=== PATIENT | female | born 1960 | race Caucasian/White ===

== ENCOUNTER 2023-03-16 18:22 | Emergency (ER) | payer OTHER, SELFPAY ==
[2023-03-16 18:40] VITALS: BP 167/80; PULSE 71; RESP 18; TEMP 35.9; O2SAT 99; BMI 24.7
--- NOTE | 2023-03-16 18:51 | ED_ITS ---
HPI - Female Genitourinary General Chief complaint: Urogenital Problems, Female Stated complaint: poss uti Time Seen by Provider: 03/16/23 18:23 History of Present Illness HPI Narrative: This 63-year-old female comes in reporting dysuria symptoms that began earlier today. She has increased frequency and discomfort when voiding urine. 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 She did take some azo prior to arrival and also states that she had some nitrofurantoin left over and she took a dose of this today. She states that the nitro friend joint does not seem to help her very much anymore. Related Data Allergies Allergy/AdvReac Type Severity Reaction Status Date / Time Sulfa (Sulfonamide Allergy Severe rash Verified 03/16/23 18:44 Antibiotics) Review of Systems Status of ROS: Reports: 10 or more systems reviewed and unremarkable except as noted in History and below Narrative: Constitutional: No fevers, no weight gain or loss. Eyes: No discharge. No vision changes. HENT: No congestion, no sore throat, no ear pain. Cardiovascular: No chest pain, no palpitations. Respiratory: No shortness of breath, no wheezes, no cough. Gastrointestinal: No abdominal pain, no vomiting, no diarrhea. Genitourinary: Dysuria symptoms as described above. Musculoskeletal: Normal range of motion. Skin: No rashes, no pruritis. Neurological: No dizziness, weakness, sensory change, speech change. Endo/Heme/Allergies: No bruising or bleeding. No polydipsia. Pysch: no suicidality, no anxiety, no insomnia. All other systems reviewed and are negative. PFSH PFSH Social History Smoking Status: Never smoker Do you use any of these nicotine containing products: None Second hand tobacco smoke exposure: No How often do you have a drink containing alcohol: never How often do you have six or more drinks on one occasion: Never AUDIT-C Alcohol total score: 0 Non-prescribed substance use: denies use Exam Narrative: Exam Narrative: Constitutional: Well-developed, well-nourished, no acute distress. HEENT: Normocephalic, atraumatic. Neck: Normal range of motion. Nontender. Supple. Heart: Intact distal pulses. Lungs: No chest discomfort. No wheezes, rhonchi, or rales. Abdomen: Nontender. Back: Normal range of motion. Extremities: Normal range of motion. No injury. Skin: Intact. No rash. Warm. No erythema or pallor. Neurologic: No altered sensation. No weakness. Alert and oriented. Psychiatric: No suicidality. No anxiety or depression. No insomnia. Nursing notes and vitals signs are reviewed. Const: Vital Signs, click to edit/add: Vital Signs - 24 hr 03/16/23 18:40 Temperature 96.6 F L Pulse Rate [Right Pulse Oximeter] 71 Respiratory Rate 18 Blood Pressure [Ri ght Upper Arm] 167/80 H Pulse Oximetry 99 Oxygen Delivery Me thod Room Air Course Vital Signs Vital signs: Initial Vital Signs Temperature 96.6 F L 03/16/23 18:40 Temperature Source Temporal Artery Scan 03/16/23 18:40 Pulse Rate 71 03/16/23 18:40 Pulse Rhythm Regular 03/16/23 18:40 Pulse Strength 3+ Normal 03/16/23 18:40 Respiratory Rate 18 03/16/23 18:40 Blood Pressure 167/80 H 03/16/23 18:40 Blood Pressure Mean 109 H 03/16/23 18:40 Blood Pressure Position Sitting 03/16/23 18:40 Pulse Oximetry 99 03/16/23 18:40 Oxygen Delivery Method Room Air 03/16/23 18:40 Vital Signs Temperature 96.6 F L 03/16/23 18:40 Pulse Rate 71 03/16/23 18:40 Respiratory Rate 18 03/16/23 18:40 Blood Pressure 167/80 H 03/16/23 18:40 Pulse Oximetry 99 03/16/23 18:40 Oxygen Delivery Method Room Air 03/16/23 18:40 Temperature 96.6 F L 03/16/23 18:40 Pulse Rate 71 03/16/23 18:40 Respiratory Rate 18 03/16/23 18:40 Blood Pressure 167/80 H 03/16/23 18:40 Pulse Oximetry 99 03/16/23 18:40 Oxygen Delivery Method Room Air 03/16/23 18:40 MDM - Female Genitourinary MDM Narrative Medical decision making narrative: This patient comes in with dysuria symptoms typical of previous urinary tract infections. Urinalysis today does show typical findings of infection in the urine. The patient received a prescription for Cipro from the [facility]. Keflex is not currently available. I explained that the culture results will help clarify appropriate treatment and she will be contacted if a changes needed. Lab Data Labs: Lab Results 03/16/23 Range/Units 18:47 Urine Color Yellow (Yellow) Urine Appearance Clear (Clear) Urine pH 6.0 (5.0-8.5) Ur Specific [place] <= 1.005 (1.000-1.030) Urine Protein Negative (Negative) Urine Glucose (UA) Negative (Negative) Urine Ketones Negative (Negative) Urine Blood 2+ A (Negative) Urine Nitrite Positive A (Negative) Urine Bilirubin Negative (Negative) Urine Urobilinogen 0.2 (0.2-1.0) Ur Leukocyte Esterase 1+ A (Negative) Urine RBC 2-5 A (0-2) Urine WBC 50-100 A (0-5) Ur Squamous Epith Cells Few (None-Few) Urine Bacteria Few A (None) Discharge Plan Discharge Clinical Impression: Urinary tract infection Patient Disposition: Home, Self-Care Condition: Unchanged Additional Instructions: Take medication as directed. Follow up with MD return if worsening. Stand Alone Forms: [employer] Info Instructions
[2023-03-16 18:52] LABS: Appearance Urine Clear (Clear); Bilirubin Urine Negative (Negative); Blood Urine 2+ (Negative); Color Urine Yellow (Yellow); Glucose Urine Negative (Negative); Ketones Urine Negative (Negative); Leukocyte Esterase Urine 1+ (Negative); Nitrite Urine Positive (Negative); Protein Urine Negative (Negative); Specific Gravity Urine <= 1.005 (1.000-1.030); Urobilinogen Urine 0.2 (0.2-1.0)
[2023-03-16 18:59] LABS: Bacteria Urine Few; Squamous Epithelial Cell Urine Few (None-Few); WBC Urine 50-100 (0-5)
[2023-03-16 19:08] VITALS: BP 145/78; PULSE 74; RESP 18; TEMP 36.8; O2SAT 99
[2023-03-16 19:11] VITALS: BP 145/78; PULSE 74; RESP 18; TEMP 36.8
== END 2023-03-16 19:12 | disposition home or self-care (01) ==
LOC: ED 19:08
PROVIDERS: Emergency Provider Emergency Medicine Emergency Medical Services
DX: N39.0 Urinary tract infection, site not specified (principal)
CPT/HCPCS: 81001; 87086; 99283; 99284

== ENCOUNTER 2023-05-18 12:12 | Emergency (ER) | payer OTHER, SELFPAY ==
[2023-05-18 12:20] VITALS: BP 177/102; PULSE 75; RESP 18; TEMP 36.2; O2SAT 98; BMI 23.2
[2023-05-18 12:27] LABS: Appearance Urine Clear (Clear); Bilirubin Urine Negative (Negative); Blood Urine Trace-intact (Negative); Color Urine Yellow (Yellow); Glucose Urine Negative (Negative); Ketones Urine Negative (Negative); Leukocyte Esterase Urine 1+ (Negative); Nitrite Urine Negative (Negative); Protein Urine Negative (Negative); Urobilinogen Urine 0.2 (0.2-1.0); pH Urine 7.5 (5.0-8.5)
[2023-05-18 12:45] LABS: Bacteria Urine Few; RBC Urine 0-2 (0-2); Squamous Epithelial Cell Urine Few (None-Few)
--- NOTE | 2023-05-18 13:05 | ED_ITS ---
HPI - Female Genitourinary General Chief complaint: Urogenital Problems, Female Stated complaint: UTI Time Seen by Provider: 05/18/23 12:16 History of Present Illness HPI Narrative: This 63-year-old female comes in with dysuria symptoms with increased frequency. She states that she has had many urinary tract infections in the past and her doctor states that she has some scarring that predisposes her to such. She does not report any fever or other symptoms but suspects that she has a urinary tract infection. She decided to come in earlier to treated if it is an infection. She does not report any other symptoms. She states that she did have a surgery a bit more than a month ago and was on Keflex for a while. She has recovered from surgery and has not been on any antibiotic for several weeks. Related Data Previous Rx's Medication Instructions Recorded cephalexin 500 mg capsule 500 mg PO TID #15 caps 05/18/23 Allergies Allergy/AdvReac Type Severity Reaction Status Date / Time Sulfa (Sulfonamide Allergy Severe rash Verified 05/18/23 12:22 Antibiotics) Review of Systems Status of ROS: Reports: 10 or more systems reviewed and unremarkable except as noted in History and below Narrative: Constitutional: No fevers, no weight gain or loss. Eyes: No discharge. No vision changes. HENT: No congestion, no sore throat, no ear pain. Cardiovascular: No chest pain, no palpitations. Respiratory: No shortness of breath, no wheezes, no cough. Gastrointestinal: No abdominal pain, no vomiting, no diarrhea. Genitourinary: Dysuria with increased frequency. No hematuria. Musculoskeletal: Normal range of motion. Skin: No rashes, no pruritis. Neurological: No dizziness, weakness, sensory change, speech change. Endo/Heme/Allergies: No bruising or bleeding. No polydipsia. Pysch: no suicidality, no anxiety, no insomnia. All other systems reviewed and are negative. PFSH PFSH Social History Smoking Status: Never smoker Do you use any of these nicotine containing products: None Second hand tobacco smoke exposure: No How often do you have a drink containing alcohol: never How often do you have six or more drinks on one occasion: Never AUDIT-C Alcohol total score: 0 Non-prescribed substance use: denies use Exam Narrative: Exam Narrative: Constitutional: Well-developed, well-nourished, no acute distress. HEENT: Normocephalic, atraumatic. Neck: Normal range of motion. Nontender. Supple. Heart: Intact distal pulses. Lungs: No chest discomfort. No wheezes, rhonchi, or rales. Abdomen: Nontender. Back: Normal range of motion. Extremities: Normal range of motion. No injury. Skin: Intact. No rash. Warm. No erythema or pallor. Neurologic: No altered sensation. No weakness. Alert and oriented. Psychiatric: No suicidality. No anxiety or depression. No insomnia. Nursing notes and vitals signs are reviewed. Const: Vital Signs, click to edit/add: Vital Signs - 24 hr 05/18/23 12:20 Temperature 97.1 F L Pulse Rate [Right Pulse Oximeter] 75 Respiratory Rate 18 Blood Pressure [Ri ght Upper Arm] 177/102 H Pulse Oximetry 98 Oxygen Delivery Me thod Room Air Course Vital Signs Vital signs: Initial Vital Signs Temperature 97.1 F L 05/18/23 12:20 Temperature Source Temporal Artery Scan 05/18/23 12:20 Pulse Rate 75 05/18/23 12:20 Pulse Rhythm Regular 05/18/23 12:20 Pulse Strength 3+ Normal 05/18/23 12:20 Respiratory Rate 18 05/18/23 12:20 Blood Pressure 177/102 H 05/18/23 12:20 Blood Pressure Mean 127 H 05/18/23 12:20 Blood Pressure Position Supine 05/18/23 12:20 Pulse Oximetry 98 05/18/23 12:20 Oxygen Delivery Method Room Air 05/18/23 12:20 Vital Signs Temperature 97.1 F L 05/18/23 12:20 Pulse Rate 75 05/18/23 12:20 Respiratory Rate 18 05/18/23 12:20 Blood Pressure 177/102 H 05/18/23 12:20 Pulse Oximetry 98 05/18/23 12:20 Oxygen Delivery Method Room Air 05/18/23 12:20 Temperature 97.1 F L 05/18/23 12:20 Pulse Rate 75 05/18/23 12:20 Respiratory Rate 18 05/18/23 12:20 Blood Pressure 177/102 H 05/18/23 12:20 Pulse Oximetry 98 05/18/23 12:20 Oxygen Delivery Method Room Air 05/18/23 12:20 MDM - Female Genitourinary MDM Narrative Medical decision making narrative: This patient comes in with recurrent symptoms of what seems like a urinary tract infection however her urinalysis does not show sign of infection currently. I stated that it is best not to overuse antibiotics. She has used azo in the past for symptomatic relief and understands however that this can mask the progression of an infection for a while. I advised her to use this medicine as needed and directed. She should return if symptoms are persistent or worsening. Lab Data Labs: Lab Results 05/18/23 Range/Units 12:22 Urine Color Yellow (Yellow) Urine Appearance Clear (Clear) Urine pH 7.5 (5.0-8.5) Ur Specific [place] 1.010 (1.000-1.030) Urine Protein Negative (Negative) Urine Glucose (UA) Negative (Negative) Urine Ketones Negative (Negative) Urine Blood Trace-intact A (Negative) Urine Nitrite Negative (Negative) Urine Bilirubin Negative (Negative) Urine Urobilinogen 0.2 (0.2-1.0) Ur Leukocyte Esterase 1+ A (Negative) Urine RBC 0-2 (0-2) Urine WBC 2-5 (0-5) Ur Squamous Epith Cells Few (None-Few) Urine Bacteria Few A (None) Discharge Plan Discharge Clinical Impression: Dysuria Patient Disposition: Home, Self-Care Condition: Stable Additional Instructions: Use [id number] azo for symptomatic relief as needed and directed. Follow up with MD or return if persistent or worsening symptoms occur. Prescriptions: New cephalexin 500 mg capsule 500 mg PO TID Qty: 15 0RF Follow Up/Referrals: Provider,Not a Local [Primary Care Provider] - Stand Alone Forms: [employer] Info Instructions
--- NOTE | 2023-05-18 13:21 | ED.NURSE ---
This nurse called keflex prescription into [facility] pharmacy, per pt request.
== END 2023-05-18 13:20 | disposition home or self-care (01) ==
PROVIDERS: Emergency Provider Emergency Medicine Emergency Medical Services
DX: R30.0 Dysuria (principal)
CPT/HCPCS: 81003; 81015; 87086; 87186; 99283; 99284

== ENCOUNTER 2023-08-17 09:49 | Emergency (ER) | payer OTHER, SELFPAY ==
[2023-08-17 09:55] VITALS: BP 132/75; PULSE 79; RESP 12; TEMP 37; O2SAT 98; BMI 23.8
[2023-08-17 10:26] LABS: Appearance Urine Slightly Cloudy (Clear); Bilirubin Urine Negative (Negative); Blood Urine 3+ (Negative); Color Urine Red (Yellow); Glucose Urine Negative (Negative); Ketones Urine 1+ (Negative); Leukocyte Esterase Urine 1+ (Negative); Nitrite Urine Negative (Negative); Protein Urine 2+ (Negative); Specific Gravity Urine 1.015 (1.000-1.030); Urobilinogen Urine 0.2 (0.2-1.0); pH Urine 8.5 (5.0-8.5)
[2023-08-17 10:48] LABS: RBC Urine >100 (0-2); WBC Urine 50-100 (0-5)
[2023-08-17 10:49] LABS: Bacteria Urine Few; Squamous Epithelial Cell Urine Few (None-Few)
--- NOTE | 2023-08-17 10:59 | ED.FEMALEGU ---
HPI - Female Genitourinary General Date Seen: 08/17/23 Chief complaint: Urogenital Problems, Female Stated complaint: UTI Time Seen by Provider: 08/17/23 09:57 Source: patient Mode of arrival: ambulatory Limitations: no limitations History of Present Illness HPI Narrative: Patient is a 63-year-old female presenting to the emergency department for dysuria. She states this is been going on since she woke up this morning. Has had symptoms like this several times in the past and she states her UTIs avoids cleared up with Keflex. She did note she is concerned because the did appear to be some orange to red tinged urine but she states she has not taking any azo today. States she has polyuria and dysuria. Denies vaginal discharge or bleeding. Denies abdominal pain. No other concerns noted. Related Data Home Medications Medication Instructions Recorded Confirmed atorvastatin 10 mg tablet 10 mg PO QPM 08/17/23 08/17/23 bupropion HCl 150 mg 24 hr tablet, 150 mg PO QAM 08/17/23 08/17/23 extended release famciclovir 250 mg tablet mg PO 08/17/23 triamcinolone acetonide 0.1 % applic topical BID 08/17/23 topical cream Previous Rx's Medication Instructions Recorded cephalexin 500 mg capsule 500 mg PO TID #15 caps 05/18/23 Allergies Allergy/AdvReac Type Severity Reaction Status Date / Time Sulfa (Sulfonamide Allergy Severe rash Verified 05/18/23 12:22 Antibiotics) Review of Systems Narrative: Pertinent systems reviewed and negative unless otherwise stated in HPI PFSH PFSH Social History Smoking Status: Never smoker Do you use any of these nicotine containing products: None Second hand tobacco smoke exposure: No How often do you have a drink containing alcohol: never How often do you have six or more drinks on one occasion: Never AUDIT-C Alcohol total score: 0 Non-prescribed substance use: denies use Exam Narrative: Exam Narrative: Const: Well-nourished, Well-developed, in mild distress Eyes: PERRL, no conjunctival injection, and symmetrical lids HENT: Atraumatic external nose and ears. Moist mucous membranes. Neck: Symmetric, trachea midline, No thyromegaly. GI: Nontender/Nondistended, No rebound or guarding. MSK:Extremities w/o deformity, Normal Active ROM Skin: Warm, Dry. No rashes or lesions. Neuro: Normal Muscle tone, No focal neurological deficits. Psych: Awake, Alert, & Oriented x3. Appropriate mood and affect. Const: Vital Signs, click to edit/add: Vital Signs - 24 hr 08/17/23 09:55 Temperature 98.6 F Pulse Rate [Pulse Oximeter] 79 Respiratory Rate 12 Blood Pressure [Ri ght Upper Arm] 132/75 Pulse Oximetry 98 Oxygen Delivery Me thod Room Air Course Vital Signs Vital signs: Initial Vital Signs Temperature 98.6 F 08/17/23 09:55 Temperature Source Temporal Artery Scan 08/17/23 09:55 Pulse Rate 79 08/17/23 09:55 Pulse Rhythm Regular 08/17/23 09:55 Respiratory Rate 12 08/17/23 09:55 Blood Pressure 132/75 08/17/23 09:55 Blood Pressure Mean 94 08/17/23 09:55 Blood Pressure Position Sitting 08/17/23 09:55 Pulse Oximetry 98 08/17/23 09:55 Oxygen Delivery Method Room Air 08/17/23 09:55 Vital Signs Temperature 98.6 F 08/17/23 09:55 Pulse Rate 79 08/17/23 09:55 Respiratory Rate 12 08/17/23 09:55 Blood Pressure 132/75 08/17/23 09:55 Pulse Oximetry 98 08/17/23 09:55 Oxygen Delivery Method Room Air 08/17/23 09:55 Temperature 98.6 F 08/17/23 09:55 Pulse Rate 79 08/17/23 09:55 Respiratory Rate 12 08/17/23 09:55 Blood Pressure 132/75 08/17/23 09:55 Pulse Oximetry 98 08/17/23 09:55 Oxygen Delivery Method Room Air 08/17/23 09:55 MDM - Female Genitourinary MDM Narrative Medical decision making narrative: Patient is a 63-year-old female presenting for concerns of a UTI. Urinalysis was ordered. It does show signs of UTI. There is notable amount of blood in the urine that this could be secondary to the urinary tract infection. She is having no abdominal or flank pain and associated kidney stone seems very unlikely at this time. She states this feels just like her previous UTIs. I do not believe further workup is needed as she is otherwise stable. She will be discharged on Keflex [facility]. She is agreeable to this plan. Lab Data Labs: Lab Results 08/17/23 Range/Units 10:00 Urine Color Red A (Yellow) Urine Appearance Slightly Cloudy A (Clear) Urine pH 8.5 (5.0-8.5) Ur Specific [place] 1.015 (1.000-1.030) Urine Protein 2+ A (Negative) Urine Glucose (UA) Negative (Negative) Urine Ketones 1+ A (Negative) Urine Blood 3+ A (Negative) Urine Nitrite Negative (Negative) Urine Bilirubin Negative (Negative) Urine Urobilinogen 0.2 (0.2-1.0) Ur Leukocyte Esterase 1+ A (Negative) Urine RBC >100 A (0-2) Urine WBC 50-100 A (0-5) Ur Squamous Epith Cells Few (None-Few) Urine Bacteria Few A (None) Discharge Plan Discharge Clinical Impression: Urinary tract infection Qualifiers: Urinary tract infection type: site unspecified Hematuria presence: with hematuria Qualified Code(s): N39.0 - Urinary tract infection, site not specified Patient Disposition: Home, Self-Care Condition: Stable Instructions: Urinary Tract Infection in Women (DC) Additional Instructions: Take Tylenol and ibuprofen for pain. Take the antibiotics as directed. Return to emergency department for new or worsening symptoms. If symptoms persist follow-up with your primary care provider Prescriptions: No Action cephalexin 500 mg capsule 500 mg PO TID Qty: 15 0RF atorvastatin 10 mg tablet 10 mg PO QPM triamcinolone acetonide 0.1 % cream topical BID famciclovir 250 mg tablet PO bupropion HCl 150 mg tablet extended release 24 hr 150 mg PO QAM Follow Up/Referrals: Provider,Not a Local [Primary Care Provider] - Stand Alone Forms: [employer] Info Instructions
--- NOTE | 2023-08-17 11:31 | ED.NURSE ---
Instymeds for [facility] provided to Pt by ANA Rosenthal.
== END 2023-08-17 11:06 | disposition home or self-care (01) ==
PROVIDERS: Emergency Provider Student in an Organized Health Care Education/Training Program
DX: N39.0 Urinary tract infection, site not specified (principal)
CPT/HCPCS: 81001; 87086; 99282; 99283